=== PATIENT | female | born 1960 ===

== ENCOUNTER 2020-07-15 07:45 | Outpatient (CLI) | payer OTHER | END 2020-07-15 07:47 | disposition home or self-care (01) | LOC: MAMO-SONO 07:45 | PROVIDERS: ATTEND Specialist | DX: Z12.31 Encounter for screening mammogram for malignant neoplasm of breast (principal); N63.10 Unspecified lump in the right breast, unspecified quadrant; N63.20 Unspecified lump in the left breast, unspecified quadrant ==

== ENCOUNTER 2021-04-14 09:13 | Outpatient (CLI) | payer OTHER | END 2021-04-14 09:15 | disposition home or self-care (01) | LOC: SONOGRAMA 09:13 | PROVIDERS: ATTEND Specialist | DX: E03.8 Other specified hypothyroidism (principal); E66.8 Other obesity; E08.8 Diabetes mellitus due to underlying condition with unspecified complications ==

== ENCOUNTER 2022-01-05 10:49 | Outpatient (CLI) | payer OTHER | END 2022-01-05 11:05 | disposition home or self-care (01) | LOC: MAMO-SONO 10:49 | PROVIDERS: ATTEND Specialist | DX: N63.0 Unspecified lump in unspecified breast (principal); Z12.31 Encounter for screening mammogram for malignant neoplasm of breast ==

== ENCOUNTER 2022-12-28 09:55 | Outpatient (CLI) | payer OTHER | END 2022-12-28 10:03 | disposition home or self-care (01) | LOC: RAD 09:55 | PROVIDERS: ATTEND Specialist | DX: G56.03 Carpal tunnel syndrome, bilateral upper limbs (principal); E08.9 Diabetes mellitus due to underlying condition without complications; E03.9 Hypothyroidism, unspecified; M77.30 Calcaneal spur, unspecified foot ==

== ENCOUNTER 2023-01-15 07:51 | Emergency (ER) | payer OTHER ==
[~2023-01-15] VITALS: Ht 165.1 cm; Wt 107.0 kg
[2023-01-15] MEDS ORDERED: COZAAR50 MG PO (08:04)
[2023-01-15] MEDS ORDERED: XIGDUO XR 5 MG1 EAC1 PO (08:04)
[2023-01-15] MEDS ORDERED: ECOTRIN81 MG PO (08:04)
[2023-01-15] MEDS ORDERED: CELEBREX200MG PO (10:21)
== END 2023-01-15 10:37 | disposition home or self-care (01) ==
LOC: ER 07:51
DX: M25.562 Pain in left knee (principal)

== ENCOUNTER 2023-01-18 07:18 | Outpatient (CLI) | payer OTHER ==
[~2023-01-18 07:18] MED LIST: CELEBREX200MG PO; COZAAR50 MG PO; ECOTRIN81 MG PO; XIGDUO XR 5 MG1 EAC1 PO
== END 2023-01-18 10:30 | disposition home or self-care (01) ==
LOC: RAD 07:18
PROVIDERS: ATTEND Surgery Surgery of the Hand
DX: M54.2 Cervicalgia (principal); M19.049 Primary osteoarthritis, unspecified hand; M19.031 Primary osteoarthritis, right wrist; M19.032 Primary osteoarthritis, left wrist

== ENCOUNTER 2023-02-03 07:44 | Outpatient (CLI) | payer OTHER | END 2023-02-03 07:55 | disposition home or self-care (01) | LOC: MRI 07:44 | PROVIDERS: ATTEND Specialist | DX: M25.562 Pain in left knee (principal) | CPT/HCPCS: 73721 ==